=== PATIENT | female | born 1975 | race Caucasian/White ===

== ENCOUNTER 2018-09-04 19:00 | Emergency (ER) | payer SELFPAY ==
[2018-09-04 19:02] VITALS: BP 173/97; PULSE 87; RESP 16; TEMP 36.6; O2SAT 98
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
[2018-09-04 21:09] VITALS: BP 135/88; PULSE 77; RESP 16; O2SAT 98
[2018-09-04] MEDS: KETOROLAC 60 MG/2 ML VIAL IM (21:27)
[2018-09-04] MEDS: CYCLOBENZAPRINE 10 MG PREPACK 1 BOTTLE MISC (21:55)
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
== END 2018-09-04 21:50 | disposition home or self-care (01) ==
PROVIDERS: Emergency Provider Nurse Practitioner Family
DX: M62.830 Muscle spasm of back (principal); M54.6 Pain in thoracic spine; V89.2XXA Person injured in unspecified motor-vehicle accident, traffic, initial encounter
CPT/HCPCS: 99282; 99283; J1885

== ENCOUNTER 2019-11-28 23:01 | Emergency (ER) | payer OTHER, SELFPAY ==
[2019-11-28 23:11] VITALS: BMI 38.6
[2019-11-28 23:14] VITALS: BP 141/93; PULSE 78; RESP 21; TEMP 36.9; O2SAT 99
--- NOTE | 2019-11-28 23:29 | DI.RAD.S_ITS ---
PROCEDURE: XR ANKLE LT MIN 3V INDICATIONS: pain lateral malleolus, edema TECHNIQUE: 3 views of the ankle were acquired. COMPARISON: [facility], , FOOT 3V LEFT, 07/18/2012, 9:08. [facility], , ANKLE 3 VIEWS LEFT, 07/18/2012, 9:08. FINDINGS: Bones: In this patient with this given history, scrutiny is given to the lateral malleolus. No fractures or other bony abnormalities are seen. No bony abnormalities are seen elsewhere. The talar dome demonstrates no joni abnormality. No suspicious lytic or blastic lesions are seen. Soft tissues: Mild soft tissue swelling can be seen laterally. IMPRESSION: Soft tissue swelling is seen, without an acute abnormality seen by plain film. If there is point tenderness (or other clinical suspicion for a fracture not seen on these images) then a dedicated CT or a short-term followup plain film series could be considered for further evaluation, as clinically appropriate. Dictated by: Ismael Rucker M.D. on 11/29/2019 at 8:02 Approved by: Ismael Rucker M.D. on 11/29/2019 at 8:03
[2019-11-28] MEDS: IBUPROFEN 400 MG TABLET PO (23:37)
[2019-11-28] MEDS: ACETAMINOPHEN 325 MG TABLET PO (23:37)
--- NOTE | 2019-11-29 00:27 | ED.LOWEXIN ---
HPI - Extremity Injury (Lower) General Chief Complaint: Extremity Injury, Lower Stated Complaint: left foot swollen,pain Time Seen by Provider: 11/28/19 23:25 Source: patient Mode of arrival: Ambulatory History of Present Illness HPI Narrative: 44-year-old woman presents with left ankle pain. The lateral aspect of her ankle has been bothering her over the course of the day. 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 She does not recall any specific acute trauma. She denies fevers or chills and has no skin changes rashes or erythema around the area. Related Data Home Medications Medication Instructions Recorded Confirmed ibuprofen 800 mg PO BID #0 07/18/12 Previous Rx's Medication Instructions Recorded cyclobenzaprine 10 mg PO TID PRN #20 tab 09/04/18 Allergies Allergy/AdvReac Type Severity Reaction Status Date / Time No Known Drug Allergies Allergy Verified 11/28/19 23:11 Review of Systems Review of Systems Narrative: Pertinent positive and negative findings as per HPI Remainder of review of systems is otherwise unremarkable for Constitutional: Fevers, chills, weakness CV: Chest pain, palpitations, dyspnea on exertion Respiratory: Cough, wheeze, dyspnea GI: Nausea, vomiting, diarrhea, change in bowel habits, black or bloody stools : Dysuria, hematuria, flank pain MS: Muscle weakness, numbness, joint swelling or warmth Skin: Rashes, nonhealing lesions Patient History Surgical History Status post knee surgery (01/14/09) Social History Smoking Status: Current every day smoker Smoking Status: Current every day smoker Exam Narrative Exam Narrative: General: Alert appropriate in no acute distress Respiratory: Able to speak in full sentences, no obvious respiratory distress Skin: No obvious rashes, warm and dry Neurologic: Grossly intact no obvious asymmetries or abnormalities Psych, appropriate insight and affect, cooperative Extremity: Left ankle is examined, she is tender on the lateral malleolus to palpation with slight edema over the lateral aspect of the ankle. There is no contusion, obvious trauma she has full range of motion at the ankle joint. She is neurovascularly intact distally. Initial Vital Signs Initial Vital Signs: Vital Signs Temperature 98.5 F 11/28/19 23:14 Pulse Rate 78 11/28/19 23:14 Respiratory Rate 21 11/28/19 23:14 Blood Pressure 141/93 H 11/28/19 23:14 Pulse Oximetry 99 11/28/19 23:14 Course Orders Ordered: ED Orders 11/28/19 23:29 XR ankle LT min 3V Stat Discontinued Medications Acetaminophen (Tylenol) 325 mg PO NOW ONE Stop: 11/28/19 23:31 Last Admin: 11/28/19 23:37 Dose: 325 mg Documented by: SCANAPO Ibuprofen (Advil) 400 mg PO NOW ONE Stop: 11/28/19 23:31 Last Admin: 11/28/19 23:37 Dose: 400 mg Documented by: SCANAPO Vital Signs Vital signs: Vital Signs - 8 hr 11/28/19 23:14 Temperature 98.5 F Pulse Rate 78 Respiratory Rate 21 Blood Pressure [Left Arm] 141/93 H Pulse Oximetry 99 [facility] - Extremity Injury (Lower) Medical Records Attestation: I reviewed the patient's medical records. Imaging Data xray ankle: Attestation: I personally reviewed and interpreted this imaging study as follows: My Impression: No fractures, no widened joint space to suggest significant ligamentous injury, minor edema appreciated around the lateral malleolus. [facility] Narrative Medical decision making narrative: Acute ankle strain without fracture. She is given an ankle brace for pain control. She is safe for home discharge Discharge Plan Departure Patient Disposition: Home Clinical Impression: Ankle sprain and strain Instructions: DI for Ankle Sprain Activity Restrictions/Additional Instructions: Thank you for coming in today I am sorry that your ankle is bothering you. Fortunately the x-rays done in the emergency room today do not suggest a fracture or severe sprain. You do have a mild sprain and I have placed an air splint for a bit more stability and comfort. Please use it as long as it is helping control your ankle. Using 400 mg of ibuprofen (2 njji-ugt-[id number] pills) and 1 Tylenol every 6 hours can be very helpful in controlling pain. Keeping it elevated and using ice can help as well. If it is not healing please follow-up with Dr. March with [facility] I hope you feel better Prescriptions: No Action ibuprofen 800 MG tablet 800 mg PO BID Qty: 0 RF: 0 cyclobenzaprine 10 mg tablet 10 mg PO TID PRN (Reason: muscle spasm) Qty: 20 RF: 0 Referrals: Aj March MD [Physician] -
[2019-11-29 00:54] VITALS: BP 119/71; PULSE 74; RESP 16; O2SAT 98
== END 2019-11-29 00:56 | disposition home or self-care (01) ==
PROVIDERS: Emergency Provider Emergency Medicine
DX: S93.402A Sprain of unspecified ligament of left ankle, initial encounter (principal); S96.912A Strain of unspecified muscle and tendon at ankle and foot level, left foot, initial encounter
CPT/HCPCS: 73610; 99283

== ENCOUNTER 2020-11-15 23:08 | Emergency (ER) | payer OTHER, SELFPAY ==
[2020-11-15 23:14] VITALS: PULSE 89; RESP 18; TEMP 36.7; O2SAT 97
--- NOTE | 2020-11-15 23:19 | DI.RAD.S_ITS ---
PROCEDURE: XR HUMERUS LT 2V INDICATIONS: fall TECHNIQUE: 2 views of the humerus were acquired. COMPARISON: [facility], CR, XR SHOULDER LT MIN 2V, 11/15/2020, 23:23. FINDINGS: Bones: No fractures or dislocations. No suspicious bony lesions. Benign-appearing exostosis in the distal humerus. Soft tissues: No suspicious soft tissue calcifications. IMPRESSION: No evidence acute bony abnormality of the left humerus Dictated by: Elver Mendoza M.D. on 11/16/2020 at 8:12 Approved by: Elver Mendoza M.D. on 11/16/2020 at 8:14
--- NOTE | 2020-11-15 23:19 | DI.RAD.S_ITS ---
PROCEDURE: XR RIBS LT MIN 3V W CXR1V INDICATIONS: fall TECHNIQUE: 2 views of the left ribs were acquired, along with a single view chest. COMPARISON: [facility], CR, XR SHOULDER LT MIN 2V, 11/15/2020, 23:23. FINDINGS: Surgical changes and devices: None. Bones and chest wall: No displaced rib fractures noted. Linear lucency in the left glenoid. No suspicious bony lesions. Overlying soft tissues appear unremarkable. Lungs and pleura: No pleural effusions or pneumothorax. Lungs appear clear. Mediastinum: Mediastinal contours appear normal. Heart size is normal. IMPRESSION: 1. No evidence of displaced left rib fracture. 2. Neg chest 3. Linear lucency in the left glenoid. Cannot exclude left glenoid fracture. Comment: Final report is concordant with preliminary interpretation provided by [facility]. Dictated by: Elver Mendoza M.D. on 11/16/2020 at 8:10 Approved by: Elver Mendoza M.D. on 11/16/2020 at 8:12
--- NOTE | 2020-11-15 23:19 | DI.RAD.S_ITS ---
PROCEDURE: XR SHOULDER LT MIN 2V INDICATIONS: fall TECHNIQUE: 3 views of the shoulder were acquired. COMPARISON: None. FINDINGS: Bones: There is a linear lucency in the glenoid, which is of uncertain etiology. It may potentially represent a glenoid fracture. No other fractures or dislocations. No suspicious bony lesions. Visualized ribs appear intact. Soft tissues: No suspicious soft tissue calcifications. IMPRESSION: Question nondisplaced glenoid fracture. Comment: If suspect glenoid fracture, consider shoulder CT. Comment: Final report is concordant with preliminary interpretation provided by [facility]. Dictated by: Elver Mendoza M.D. on 11/16/2020 at 8:09 Approved by: Elver Mendoza M.D. on 11/16/2020 at 8:10
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
[2020-11-16 01:50] VITALS: BP 125/78; PULSE 76; RESP 15; O2SAT 99
[2020-11-16 02:03] VITALS: BP 137/90; PULSE 79; RESP 18; O2SAT 98
== END 2020-11-16 02:04 | disposition home or self-care (01) ==
PROVIDERS: Emergency Provider Emergency Medicine
DX: S42.92XA Fracture of left shoulder girdle, part unspecified, initial encounter for closed fracture (principal); W19.XXXA Unspecified fall, initial encounter
CPT/HCPCS: 71101; 73030; 73060; 99283; 99284

== ENCOUNTER 2021-06-06 15:28 | Emergency (ER) | payer OTHER, SELFPAY ==
[2021-06-06 15:35] VITALS: BP 147/90; PULSE 95; RESP 18; TEMP 36.4; O2SAT 98; BMI 34.3
--- NOTE | 2021-06-06 15:51 | DI.RAD.S_ITS ---
PROCEDURE: XR CHEST 2V INDICATIONS: chest pain w/ cough TECHNIQUE: 2 views of the chest were acquired. COMPARISON: None. FINDINGS: Surgical changes and devices: None. Lungs and pleura: Lungs are clear. No pleural effusions or pneumothorax. Mediastinum: Mediastinal contours are normal. Heart size is normal. Bones and chest wall: No suspicious bony abnormalities. Soft tissues appear unremarkable. IMPRESSION: No acute cardiopulmonary abnormality. Dictated by: Brent Cheung M.D. on 06/06/2021 at 16:22 Approved by: Brent Cheung M.D. on 06/06/2021 at 16:23
[2021-06-06 18:28] VITALS: BP 149/93; PULSE 105; O2SAT 98
[2021-06-06 18:30] VITALS: PULSE 96; O2SAT 99
[2021-06-06 19:00] VITALS: PULSE 81; O2SAT 98
[2021-06-06 19:04] LABS: COVID19 -Nasal RAPID Negative (Negative)
--- NOTE | 2021-06-06 19:14 | ED.CHESTPAIN ---
HPI - Chest Pain <Margo Moulton PA-C - Last Filed: 06/06/21 19:54> General Chief Complaint: Chest Pain Stated Complaint: cough t-2, chest pain Time Seen by Provider: 06/06/21 18:48 Source: patient Mode of arrival: Ambulatory Limitations: no limitations History of Present Illness HPI narrative: 45-year-old female with no reported past medical history presents to the ED with 2 days of left shoulder, chest pain, upper back pain. Patient states that pain is aggravated by movement or coughing pain is resolved without movement. Patient states she had a recent clavicular or glenoid fracture, which was treated with a sling. Patient states she has started a new workout program in the past 3 weeks, the last time she worked out was 5 days ago. Patient denies any known trauma, is not sure if for were caught program might have contributed to her symptoms. Patient denies numbness, tingling, weakness. Patient denies fever, chills, shortness of breath, nausea, vomiting, lightheadedness, dizziness, syncope. Patient has tried taking ibuprofen and Tylenol with minimal relief. Related Data Home Medications Medication Instructions Recorded Confirmed ibuprofen 800 mg tablet 800 mg PO BID #0 07/18/12 Previous Rx's Medication Instructions Recorded cyclobenzaprine 10 mg tablet 10 mg PO TID PRN #20 tab 09/04/18 Allergies Allergy/AdvReac Type Severity Reaction Status Date / Time No Known Drug Allergies Allergy Verified 11/28/19 23:11 Review of Systems <Margo Moulton PA-C - Last Filed: 06/06/21 19:54> Review of Systems ROS Unobtainable: All systems reviewed & are unremarkable except as noted in HPI and below Constitutional Constitutional: Denies chills, Denies fatigue, Denies fever(s), Denies frequent falls, Denies lethargy and Denies weakness Eyes Eyes: Denies change in vision, Denies eye discharge, Denies irritation and Denies loss of vision ENT Ears, Nose, Mouth, and Throat: Denies change in voice, Denies dizziness, Denies neck pain, Denies sore throat and Denies throat swelling Cardiovascular Cardiovascular: Denies chest pain, Denies irregular heart rhythm, Denies lightheadedness, Denies palpitations, Denies dyspnea, Denies dyspnea on exertion and Denies orthopnea Respiratory Respiratory: Denies cough, Denies dyspnea, Denies dyspnea on exertion and Denies wheezing Gastrointestinal Gastrointestinal: Denies abdominal pain, Denies change in bowel habits, Denies diarrhea, Denies nausea and Denies vomiting Genitourinary Genitourinary: Denies hematuria, Denies flank pain, Denies urinary incontinence and Denies urinary urgency Musculoskeletal Musculoskeletal: Denies muscle weakness, Denies neck pain, Denies numbness and Denies tingling Comments: Pain in left upper chest, clavicle, upper left back Integumentary/Breasts Skin/Breast: Denies pruritus, Denies erythema, Denies rash and Denies wounds Neurologic Neurologic: Denies behavioral changes, Denies confusion, Denies dizziness, Denies frequent falls, Denies loss of vision, Denies numbness, Denies tingling and Denies weakness Psychiatric Psychiatric: Denies anxiety, Denies behavioral changes, Denies confusion, Denies depression, Denies homicidal ideation and Denies suicidal ideation Endocrine Endocrine: Denies fatigue, Denies flushing and Denies palpitations Hematologic/Lymphatic Hematologic/Lymphatic: Denies easy bruising Allergic/Immunologic Allergic/Immunologic: Denies urticaria, Denies throat swelling and Denies wheezing Patient History <Margo Moulton PA-C - Last Filed: 06/06/21 19:54> Surgical History Status post knee surgery (01/14/09) Social History Smoking Status: Current every day smoker Smoking Status: Current every day smoker alcohol intake frequency: holidays/special occasions only Substance Use Type: does not use Exam <Margo Moulton PA-C - Last Filed: 06/06/21 19:54> Initial Vital Signs Initial Vital Signs: Vital Signs Temperature 97.6 F 06/06/21 15:35 Pulse Rate 95 H 06/06/21 15:35 Respiratory Rate 18 06/06/21 15:35 Blood Pressure 147/90 H 06/06/21 15:35 Pulse Oximetry 98 06/06/21 15:35 Const General: cooperative and healthy appearing [facility] Head: normal to inspection Eyes General: appearance normal, both eyes and all related structures Neck Neck: normal visual inspection Chest Chest: normal inspection of the chest Other: Tenderness to palpation of left upper chest, clavicle, shoulder. No bruising, deformities. Resp Effort & Inspection: normal respiratory effort Auscultation: clear to auscultation bilaterally Cardio Rate: regular rate Rhythm: regular rhythm Back/Spine/Pelvis Back: normal to inspection Skin General: no rashes or lesions noted Neuro General: patient alert, patient awake and patient oriented x3 Extrem General: normal to inspection Other: Left arm movement limited by pain in the clavicle area <Kath Rios DO - Last Filed: 06/07/21 13:56> Initial Vital Signs Initial Vital Signs: Vital Signs Temperature 97.6 F 06/06/21 15:35 Pulse Rate 95 H 06/06/21 15:35 Respiratory Rate 18 06/06/21 15:35 Blood Pressure 147/90 H 06/06/21 15:35 Pulse Oximetry 98 06/06/21 15:35 Course <Margo Moulton PA-C - Last Filed: 06/06/21 19:54> Orders Ordered: Discontinued Medications Cyclobenzaprine HCl (Cyclobenzaprine 10 Mg Tablet) 10 mg PO NOW ONE Stop: 06/06/21 19:24 Last Admin: 06/06/21 19:56 Dose: 10 mg Documented by: SONYAYLKHANH Ketorolac Tromethamine (Ketorolac 30 Mg/Ml Vial) 15 mg IM NOW ONE Stop: 06/06/21 19:24 Last Admin: 06/06/21 19:56 Dose: 15 mg Documented by: MARY Vital Signs Vital signs: Vital Signs - 8 hr 06/06/21 15:35 Temperature 97.6 F Pulse Rate 95 H Respiratory Rate 18 Blood Pressure 147/90 H Pulse Oximetry 98 <Kath Rios DO - Last Filed: 06/07/21 13:56> Orders Ordered: Discontinued Medications Cyclobenzaprine HCl (Cyclobenzaprine 10 Mg Tablet) 10 mg PO NOW ONE Stop: 06/06/21 19:24 Last Admin: 06/06/21 19:56 Dose: 10 mg Documented by: SONYAYLKHANH Ketorolac Tromethamine (Ketorolac 30 Mg/Ml Vial) 15 mg IM NOW ONE Stop: 06/06/21 19:24 Last Admin: 06/06/21 19:56 Dose: 15 mg Documented by: MARY Vital Signs Vital signs: Vital Signs - 8 hr 06/06/21 15:35 Temperature 97.6 F Pulse Rate 95 H Respiratory Rate 18 Blood Pressure 147/90 H Pulse Oximetry 98 MDM - Chest Pain <Margo Moulton PA-C - Last Filed: 06/06/21 19:54> Lab Data Labs: Lab Results 06/06/21 Range/Units 18:35 SARS-CoV-2 (PCR) Negative (Negative) Imaging Data Chest x-ray: Radiologist's Impression: PROCEDURE:? XR CHEST 2V ? INDICATIONS:? chest pain w/ cough ? TECHNIQUE:? 2 views of the chest were acquired.? ? COMPARISON:? None. ? FINDINGS:? ? Surgical changes and devices:? None.? ? Lungs and pleura:? Lungs are clear.? No pleural effusions or pneumothorax.? ? Mediastinum:? Mediastinal contours are normal.? Heart size is normal.? ? Bones and chest wall:? No suspicious bony abnormalities.? Soft tissues appear unremarkable.? ? IMPRESSION:? No acute cardiopulmonary abnormality. ? ? Dictated by: Brent Cheung M.D. on 06/06/2021 at 16:22 ? ? Approved by: Brent Cheung M.D. on 06/06/2021 at 16:23 ? [facility] Narrative Medical decision making narrative: 45-year-old female with no reported past medical history presents to the ED with 2 days of left shoulder, chest pain, upper back pain. Physical exam is reassuring, patient is neurovascularly intact. Patient's pain is reproducible by arm movement. Unlikely cardiac etiology. Symptoms are likely due to musculoskeletal sprain/strain. Chest x-ray does not show clavicular or glenoid irregularities. Will treat symptoms with Toradol and Flexeril. Will discharge patient home with ED return precautions. <Kath Rios DO - Last Filed: 06/07/21 13:56> Lab Data Labs: Lab Results 06/06/21 Range/Units 18:35 SARS-CoV-2 (PCR) Negative (Negative) ECG Data Attestation: I personally reviewed and interpreted this ECG as follows: Prior ECG tracings: not available for review Interpretation: Sinus rhythm, rate 80 P are 162 QRS is 78 QTC of 412. No acute ST changes appreciated. Patient appears to have some motion artifact in V5. Discharge Plan Departure Patient Disposition: Home Clinical Impression: Atypical chest pain Instructions: Sprain Activity Restrictions/Additional Instructions: You were evaluated in the ED today for chest pain. Given that your symptoms are reproducible by moving her arm, your symptoms are likely caused by a musculoskeletal sprain/strain. You may use Tylenol, ibuprofen for symptom relief. Please refrain from straining the arm or shoulder until your symptoms resolve. Return to the ED if you have worsening symptoms, you experience numbness, tingling, weakness, shortness of breath, chest pain. Please follow-up with your PCP. Prescriptions: No Action ibuprofen 800 MG tablet 800 mg PO BID Qty: 0 0RF cyclobenzaprine 10 mg tablet 10 mg PO TID PRN (Reason: muscle spasm) Qty: 20 0RF <Kath Rios DO - Last Filed: 06/07/21 13:56> [facility] Attending Michele Attestation: I was immediately available in the department for consultation. Documentation has been reviewed.
[2021-06-06 19:30] VITALS: PULSE 83; O2SAT 98
[2021-06-06] MEDS: KETOROLAC 30 MG/ML VIAL 15 MG IM (19:56)
[2021-06-06] MEDS: CYCLOBENZAPRINE 10 MG TABLET PO (19:56)
[2021-06-06 20:00] VITALS: BP 133/84; PULSE 79; RESP 20; O2SAT 100
== END 2021-06-06 20:10 | disposition home or self-care (01) ==
PROVIDERS: Emergency Medicine; Emergency Provider Student in an Organized Health Care Education/Training Program
DX: R07.89 Other chest pain (principal); F17.200 Nicotine dependence, unspecified, uncomplicated; Z20.822 Contact with and (suspected) exposure to COVID-19
CPT/HCPCS: 71046; 87635; 93005; 96372; 99284; C9803; J1885

== ENCOUNTER 2022-02-19 18:17 | Emergency (ER) | payer OTHER, SELFPAY ==
--- NOTE | 2022-02-19 18:34 | DI.RAD.S_ITS ---
PROCEDURE: XR FOOT RT MIN 3V INDICATIONS: crush injury TECHNIQUE: 3 views of the foot were acquired. COMPARISON: [facility], , FOOT 3V RIGHT, 04/18/2013, 12:54. FINDINGS: Bones: No fractures or dislocations. No suspicious bony lesions. Calcaneal spur is present. Soft tissues: No tibiotalar joint effusion. Achilles tendon appears normal. IMPRESSION: No visualized acute fracture or dislocation. However, if clinical concern and/or pain persist, short interval imaging followup in 7-10 days is recommended, as occult injury cannot be definitively excluded. Dictated by: Kiki Garcia M.D. on 02/19/2022 at 19:36 Approved by: Kiki Garcia M.D. on 02/19/2022 at 19:37
[2022-02-19 18:35] VITALS: BP 153/95; PULSE 89; RESP 18; TEMP 36.9; O2SAT 99
--- NOTE | 2022-02-19 22:23 | ED_ITS ---
HPI - Extremity Injury (Lower) General Chief Complaint: Extremity Injury, Lower Stated Complaint: right foot injury at work Time Seen by Provider: 02/19/22 22:23 Source: patient Mode of arrival: Ambulatory History of Present Illness HPI Narrative: 46-year-old female daily smoker with noncontributory medical history presents with a chief complaint of a right foot injury suffered at work. 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 She denies pain with ambulation and improvement with rest. She denies any numbness, tingling or weakness. She has no knee or hip pain. She denies any prior injury of her foot. She is otherwise well and free of complaint Related Data Home Medications Medication Instructions Recorded Confirmed ibuprofen 800 mg tablet 800 mg PO BID ##0 07/18/12 Previous Rx's Medication Instructions Recorded cyclobenzaprine 10 mg tablet 10 mg PO TID PRN muscle spasm #20 09/04/18 tabs Allergies Allergy/AdvReac Type Severity Reaction Status Date / Time No Known Drug Allergies Allergy Verified 11/28/19 23:11 Review of Systems Review of Systems Narrative: GENERAL: Denies chills, fatigue, malaise, fever, sweats. HEENT: Denies sinus pain, ear pain, sore throat, difficulty swallowing, dizziness. RESPIRATORY: Denies dyspnea, cough, wheezing, hemoptysis, sputum. CARDIOVASCULAR: Denies chest pain, palpitations, orthopnea, edema, GASTROINTESTINAL: Denies nausea, vomiting, abdominal pain, diarrhea, constipation, melena. : Denies dysuria, frequency, incontinence, hematuria, urinary retention. MUSCULOSKELETAL: See HPI SKIN: Denies rash, skin lesions, or other NEUROLOGIC: Denies weakness, headache, numbness, change in speech, confusion, seizures, incoordination. PSYCHIATRIC: No concerning psychosocial issues. 12 point review of systems is negative except for those stated above Patient History Surgical History Status post knee surgery (01/14/09) Social History Smoking Status: Current every day smoker Smoking Status: Current every day smoker alcohol intake frequency: holidays/special occasions only Substance Use Type: does not use Exam Narrative Exam Narrative: GEN: AOx3 and in mild distress EYES: Pupils are equal, round, and reactive to light and accommodation. Extraoccular muscles are intact bilaterally. There is no subconjunctival hemorrhage or exudate. CHEST: Lungs are clear to auscultation bilaterally and free of wheezes, rales, or rhonchi. Heart rate is regular rhythm, there are no murmurs, clicks, rubs, or gallops. There is no chest wall tenderness. ABD: Abdomen is soft and nontender. There is no guarding or rebound. Bowel sounds are normal in all 4 quadrants. There is no mass or organomegaly. EXT: No obvious external manifestation of injury, no swelling, discoloration. This is closed, isolated and neurovascularly intact, cap refill intact, sensation intact, tender over in step SKIN: Warm, pink, and dry. No erythema or rash Initial Vital Signs Initial Vital Signs: Vital Signs Temperature 98.4 F 02/19/22 18:35 Pulse Rate 89 02/19/22 18:35 Respiratory Rate 18 02/19/22 18:35 Blood Pressure 153/95 H 02/19/22 18:35 Pulse Oximetry 99 02/19/22 18:35 Oxygen Delivery Method 02/19/22 18:35 Course Orders Ordered: ED Orders 02/19/22 18:34 XR foot RT min 3V Stat Vital Signs Vital signs: Vital Signs - 8 hr 02/19/22 22:33 Pulse Rate 84 Respiratory Rate 18 Blood Pressure 140/80 Pulse Oximetry 98 Oxygen Delivery Method Room Air MDM - Extremity Injury (Lower) Imaging Data Extremity x-ray #1: Radiologist's Impression: Close Foot X-Ray (Signed) Kiki Garcia - 02/19/22 Chest X-Ray (Signed) Brent Cheung - 06/06/21 Shoulder X-Ray (Signed) Elver Mendoza - 11/15/20 Ribs X-Ray (Signed) Elver Mendoza - 11/15/20 Humerus X-Ray (Signed) Elver Mendoza - 11/15/20 Ankle X-Ray (Signed) Ismael Rucker - 11/28/19 Launch?[address] [address] XRay Report Signed Patient: Ann Marie Carroll MR#: [id number] : 1975 Acct:[id number] Age/Sex: 46 / F Date of Service: 02/19/22 Loc: ED Accession Number: [id number] ?? Procedure: XR foot RT min 3V Ordering Provider: Lopez Katz D.O. PROCEDURE:? XR FOOT RT MIN 3V ? INDICATIONS:? crush injury ? TECHNIQUE:? 3 views of the foot were acquired.? ? COMPARISON:? [facility], , FOOT 3V RIGHT, 04/18/2013, 12:54. ? FINDINGS:? ? Bones:? No fractures or dislocations.? No suspicious bony lesions.? Calcaneal spur is present. ? Soft tissues:? No tibiotalar joint effusion.? Achilles tendon appears normal.? ? ? IMPRESSION:? No visualized acute fracture or dislocation. However, if clinical concern and/or pain persist, short interval imaging followup in 7-10 days is recommended, as occult injury cannot be definitively excluded. ? Dictated by: Kiki Garcia M.D. on 02/19/2022 at 19:36 ? ? Approved by: Kiki Garcia M.D. on 02/19/2022 at 19:37 ? Discharge Plan Departure Patient Disposition: Home Clinical Impression: Contusion of foot Instructions: DI for Contusion Activity Restrictions/Additional Instructions: *You have been diagnosed with [right foot contusion. As we discussed there is no evidence of fracture or dislocation on the x-ray] *What to do: *Please continue to take your regular medications as directed. [ ] New medication prescriptions sent to your pharmacy: [ ] [ ] New medication written as a paper prescription [x ] No new medications given *Please follow up with your primary care provider in 2-3 days, call for an appointment. Let them know you were seen in the Emergency Department and that we ask that you be seen in follow up. We will electronically transmit a record of today's note if your PCP is in our system *Return to Emergency Department if you should have any new, worsening or concerning symptoms, such as [fever greater than 101 F, shaking chills, worsening pain, persistent vomiting or other bothersome symptoms] Prescriptions: No Action ibuprofen 800 MG tablet 800 mg PO BID Qty: 0 cyclobenzaprine 10 mg tablet 10 mg PO TID PRN (Reason: muscle spasm) Qty: 20 0RF Visit Report Forms: Patient Portal/API
[2022-02-19 22:33] VITALS: BP 140/80; PULSE 84; RESP 18; O2SAT 98
== END 2022-02-19 22:34 | disposition home or self-care (01) ==
PROVIDERS: Emergency Provider Emergency Medicine
DX: S90.31XA Contusion of right foot, initial encounter (principal); W23.0XXA Caught, crushed, jammed, or pinched between moving objects, initial encounter; Y99.0 Civilian activity done for income or pay
CPT/HCPCS: 73630; 99281; 99283

== ENCOUNTER 2022-03-20 22:52 | Emergency (ER) | payer OTHER, SELFPAY ==
[2022-03-20 23:02] VITALS: BP 142/98; PULSE 94; RESP 18; TEMP 37.1; O2SAT 97
--- NOTE | 2022-03-20 23:04 | DI.RAD.S_ITS ---
PROCEDURE: XR FOOT RT MIN 3V INDICATIONS: dropped a box on it pain/swelling/bruising above 4th/5th TECHNIQUE: 3 views of the foot were acquired. COMPARISON: [facility], CR, XR FOOT RT MIN 3V, 02/19/2022, 19:08. FINDINGS: Bones: No fractures or dislocations. No suspicious bony lesions. Soft tissues: No tibiotalar joint effusion. Achilles tendon appears normal. IMPRESSION: 1. No fracture or dislocation. Dictated by: Roland Allred M.D. on 03/21/2022 at 0:18 Approved by: Roland Allred M.D. on 03/21/2022 at 0:19
--- NOTE | 2022-03-20 23:58 | ED_ITS ---
HPI - Extremity Injury (Lower) General Chief Complaint: Extremity Injury, Lower Stated Complaint: Right foot small toe injury Time Seen by Provider: 03/20/22 23:58 Source: patient Mode of arrival: Ambulatory History of Present Illness HPI Narrative: Patient is a healthy 46-year-old female presents with right foot pain. Says that this morning she was walking her right little toe and 4th toe got stuck in a corner of a box in little toe bent sideways. There is quite significant bruising. She has been able to ambulate and bear weight however only wearing flip-flops today at work. No other injury. Related Data Home Medications Medication Instructions Recorded Confirmed ibuprofen 800 mg tablet 800 mg PO BID ##0 07/18/12 Previous Rx's Medication Instructions Recorded cyclobenzaprine 10 mg tablet 10 mg PO TID PRN muscle spasm #20 09/04/18 tabs Allergies Allergy/AdvReac Type Severity Reaction Status Date / Time No Known Drug Allergies Allergy Verified 11/28/19 23:11 Review of Systems Review of Systems Narrative: GENERAL: Denies chills,fever HEENT: Denies throat pain RESPIRATORY: Denies dyspnea, cough, wheezing CARDIOVASCULAR: Denies chest pain, palpitations GASTROINTESTINAL: Denies nausea, vomiting MUSCULOSKELETAL: See HPI SKIN: No rash, no laceration, no pruritus NEUROLOGIC: Denies weakness, dizziness, headache, numbness 8 point review of systems is negative except for those stated above and HPI Patient History Surgical History Status post knee surgery (01/14/09) Social History Smoking Status: Current every day smoker Smoking Status: Current every day smoker alcohol intake frequency: holidays/special occasions only Substance Use Type: does not use Exam Initial Vital Signs Initial Vital Signs: Vital Signs Temperature 98.7 F 03/20/22 23:02 Pulse Rate 94 H 03/20/22 23:02 Respiratory Rate 18 03/20/22 23:02 Blood Pressure 142/98 H 03/20/22 23:02 Pulse Oximetry 97 03/20/22 23:02 Oxygen Delivery Method 03/20/22 23:02 GENERAL: Well-appearing, well-nourished and in no acute distress. CARDIOVASCULAR: peripheral pulses in tact, cap refill <2 sec RESPIRATORY: No respiratory distress, speaks in full sentences without difficulty EXTREMITIES: Normal range of motion, no clubbing or edema. Neurovascularly intact Right foot significant contusion of little toe and 2nd toe. Tender laterally distal pedal pulse intact NEUROLOGICAL: Cranial nerves II through XII grossly intact. Normal gait and speech. SKIN: Warm, dry, no petechiae, no rashes or lesions. Course Orders Ordered: ED Orders 03/20/22 23:04 XR foot RT min 3V Stat Vital Signs Vital signs: Vital Signs - 8 hr 03/20/22 23:02 Temperature 98.7 F Pulse Rate 94 H Respiratory Rate 18 Blood Pressure 142/98 H Pulse Oximetry 97 Oxygen Delivery Method Room Air MDM - Extremity Injury (Lower) Imaging Data Extremity x-ray #1: My Impression: Right foot x-ray no fracture Radiologist's Impression: Signed Patient: Ann Marie Carroll MR#: [id number] : 1975 Acct:[id number] Age/Sex: 46 / F Date of Service: 03/20/22 Loc: ED Accession Number: [id number] ?? Procedure: XR foot RT min 3V Ordering Provider: Judy Bundy D.O. PROCEDURE:? XR FOOT RT MIN 3V ? INDICATIONS:? dropped a box on it pain/swelling/bruising above 4th/5th ? TECHNIQUE:? 3 views of the foot were acquired.? ? COMPARISON:? [facility], , XR FOOT RT MIN 3V, 02/19/2022, 19:08. ? FINDINGS:? ? Bones:? No fractures or dislocations.? No suspicious bony lesions.? ? Soft tissues:? No tibiotalar joint effusion.? Achilles tendon appears normal.? ? ? IMPRESSION:? ? 1. No fracture or dislocation.? ? ? Dictated by: Roland Allred M.D. on 03/21/2022 at 0:18 ?? Discharge Plan Departure Patient Disposition: Home Clinical Impression: Contusion of toe of right foot Instructions: Contusion Activity Restrictions/Additional Instructions: *You have been diagnosed with right toe contusion *What to do: Where orthopedic shoe well ambulating. May elevate and ice. *Continue to take medications as directed Tylenol 1000 mg per orally 6 hours if needed for [id number] pain Ibuprofen 600 mg every hours if she truly bile to moderate pain *Follow up with your primary care provider in 2-3 days or call [phone] *Return to ER if you should have increasing pain swelling or any new, worsening or concerning symptoms Prescriptions: No Action ibuprofen 800 MG tablet 800 mg PO BID Qty: 0 cyclobenzaprine 10 mg tablet 10 mg PO TID PRN (Reason: muscle spasm) Qty: 20 0RF Visit Report Forms: Patient Portal/API
== END 2022-03-21 00:42 | disposition home or self-care (01) ==
PROVIDERS: Emergency Provider Emergency Medicine
DX: S90.31XA Contusion of right foot, initial encounter (principal); W22.8XXA Striking against or struck by other objects, initial encounter
CPT/HCPCS: 73630; 99281; 99283